=== PATIENT | female | born 1965 | race Asian ===

== ENCOUNTER 2022-12-13 17:26 | Outpatient (CLI) | payer MEDICAID, SELFPAY | END 2022-12-13 17:27 | disposition home or self-care (01) | LOC: AMB 01-06 15:33 | PROVIDERS: Visit Provider Emergency Medicine Emergency Medical Services | DX: S09.90XA Unspecified injury of head, initial encounter (principal); R53.1 Weakness; W18.30XA Fall on same level, unspecified, initial encounter; Y92.002 Bathroom of unspecified non-institutional (private) residence as the place of occurrence of the external cause | CPT/HCPCS: A0425; A0429 ==